=== PATIENT | male | born 1960 | race Caucasian/White ===

== ENCOUNTER 2016-11-29 14:14 | Outpatient (CLI) | payer BC ==
--- NOTE | 2016-11-29 15:49 | RAD ---
THREE VIEWS RIGHT HAND: COMPARISON: None. HISTORY: Right hand pain and swelling for 3 weeks that is intermittent. FINDINGS: Three views of the right hand show no evidence of acute fracture or dislocation. No focal soft tiss ue swelling is seen. No degenerative changes are present. IMPRESSION: Unremarkable exam. POS: [facility]
== END 2016-11-29 14:15 | disposition home or self-care (01) ==
LOC: SCSRAD 14:14
PROVIDERS: ATTEND Nurse Practitioner Family
DX: M79.641 Pain in right hand (principal)